=== PATIENT | male | born 1995 | race Caucasian/White ===

== ENCOUNTER 2023-05-31 13:21 | Outpatient (CLI) | payer MEDICAID, SELFPAY | END 2023-05-31 13:22 | disposition home or self-care (01) | PROVIDERS: Visit Provider Family Medicine | DX: R03.0 Elevated blood-pressure reading, without diagnosis of hypertension (principal) | CPT/HCPCS: 80048; 80061 ==

== ENCOUNTER 2024-10-31 09:21 | Emergency (ER) | payer OTHER, SELFPAY ==
--- OUTSIDE RECORDS SUMMARY | 2024-10-31 09:24 | XMS_ITS | Clinical Summary ---
Author Organization [facility] Address [address] [place] [id number] Care Team Providers Care Patient Care Manager Name Role Phone Pcp, No Primary Care Provider Unavailabl e Allergies Active Allergy Reactions Criticality Noted Date Comments Pollen Extracts 03/21/2009 Sertraline Emotional Disturbance 06/12/2012 Irritability and possible suicidal thoughts. Medications No known medications Active Problems Problem Noted Date Diagnosed Date Elevated blood pressure read ing without diagnosis of hypertension 07/23/2012 Encounters for other specifi ed administrative purpose(V68.89) 05/23/2012 Adjustment disorder with depressed mood 11/06/19 09 Overview (05/16/2012): May 2012: Start zoloft and referral to psychology. Allergic rhinitis, cause unspecified Overview (01/22/2007): environmental allergies Resolved Problems Problem Noted Date Diagnosed Date Resolved Date RAD 10/26/2013 Overview (10/26/2013): AGE 3-4 year old, As of October 2013: No asthma symptoms for approximately 6+ years. Will resolve diagnosis. Immunizations Immunization Administration Dates Next Due AMB Influenza, IIV3 (Age >=3 years)(Flu Clinic Only) 07/01/2008 COVID-19 vaccine ([employer] 30mcg/0.3mL) PF, MDV 12/28/2020 DTP 10/10/1997, 4,1993,08/28,1993 HIB PRP-OMP (PedvaxHIB) 07/25/1994,10/23,1993,06/23 Hepatitis A (Peds) 03/21/2009,01/22/2007 Hepatitis B (Peds) 1993,1993, 993 Influenza, IIV3 (Age >=3 years) 05/11/2010,08/09,07/21/2003 MMR 05/04/1998,07/25/1994 Meningococcal Vaccine (Menactra) 03/21/2009 Oral Polio Vaccine 05/04/1998, 4,1993,06/26 Tdap 09/26/2016,04/05/2006 Varicella Vaccine 03/21/2009,04/22/1996 Family History Medical History Relation Name Comments Hyperlipidemia Father Relation Name Status Comments Father Social History Tobacco Use Types Packs/Day Years Used Date Smoking Tobacco: Former Cigarettes Q uit: 05/26/2014 Cigars Smokeless Tobacco: Never Tobacco Cessation:Counseling Given: Yes Comments:cigar or two every other day Alcohol Use Standard Drinks/Week Comments Yes 0 (1 standard drink = 0.6 oz pur e alcohol) occasionally PHQ-2 Answer Date Recorded PHQ-2 Score 4 10/13/2018 Social Connections Answer Date Recorded Frequency of Communication with Friends and Fami ly Not on file 08/12/2021 Financial Resource Strain Answer Date R ecorded Difficulty of Paying Living Expenses Not on file 08/12/2021 Difficulty of Paying Living Expenses Not on file 08/12/2021 Sex and Gender Information Value Date Recorded Sex Assigned at Not on file 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 Gender Identity Not on file Sexual Orientation Not on file Obstetrics History Last Filed Vital Signs Vital Sign Reading Time Taken Comments Blood Pressure 153/100 12/04/2019 10:57 AM CDT Pulse 86 12/04/2019 10:57 AM CDT Temperature 37.3 C (99.1 F) 12/04/2019 10:57 AM CDT Respiratory Rate 20 07/23/2012 1:27 PM RECONCILIATION MANAGER Oxygen Saturation 96% 12/04/2019 10:57 AM CDT Inhaled Oxygen Concentration - - Weight 129.7 kg (286 lb) 12/04/2019 10:57 AM CDT Height 177 cm (5' 9.69) 09/05/2018 10:48 AM RECONCILIATION MANAGER Body Mass Index 41.41 09/05/2018 10:48 AM RECONCILIATION MANAGER Plan of Treatment Health Maintenance Due Date Last Done Comments HIV for age 15-65 2008 Hepatitis C screening for age 18-79 2011 BMI (ht and wt on same day) for age 18+ 09/05/2019 09/05/2018, 02/26/2018, 01/04/2016 Depression screening for age 12+ 09/11/2019 09/11/2018, 09/05/2018, 09/04/2018, Additional history exists COVID-19 vaccine series ( season) 2024 12/28/2020 Influenza Vaccine (#1) 2024 0, 07/01/2008, 08/09/2005, Additional history exists Tetanus booster 09/26/2026 09/26/2016, 04/05/2006 Tdap Completed 09/26/2016, 04/05/2006 Pneumococcal series for age 6-49 Aged Out No longer eligible based on patient's age to complete this topic Insurance [facility] Care Teams Patient Care Manager Relationship Specialty Start Date End Date Pcp, Xin Menchaca PCP - General 12/05/17
--- OUTSIDE RECORDS SUMMARY | 2024-10-31 09:24 | XMS_ITS | Clinical Summary ---
Author Organization [place] Address [facility] [place] [address] Care Team Providers Care Code Inspector Name Role Phone [facility], [facility] [place] [facility] Primary Care Provider Allergies Active Allergy Reactions Criticality Noted Date Comments Pollen Extract 03/21/2009 Sertraline Other (See Comments) 06/12/2012 Irritability and possible suicidal thoughts. 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 Gender Identity Not on file Sexual Orientation Not on file Last Filed Vital Signs Vital Sign Reading Time Taken Comments Blood Pressure 130/84 04/25/2019 8:15 AM CDT Pulse 86 04/25/2019 8:15 AM CDT Temperature 36.6 C (97.8 F) 04/25/2019 8:15 AM CDT Respiratory Rate 16 11/25/2017 2:02 PM CDT Oxygen Saturation 96% 04/25/2019 8:15 AM CDT Inhaled Oxygen Concentration - - Weight 106.6 kg (235 lb) 11/25/2017 11:36 AM CDT Height 175.3 cm (5' 9) 11/25/2017 11:36 AM CDT Body Mass Index 34.7 11/25/2017 11:36 AM CDT Plan of Treatment Not on file Insurance [employer] Care Teams Code Inspector Relationship Specialty Start Date End Date [facility], [facility] [id number] [place] [address] PCP - General 07/24/12
[2024-10-31 09:30] VITALS: BP 140/98; PULSE 82; RESP 18; TEMP 36.2; O2SAT 98; BMI 36.3
--- NOTE | 2024-10-31 10:00 | CRLHL7_ITS ---
For Patients: As a result of the Century Cures Act, medical imaging exams and procedure reports are released immediately into your electronic medical record. You may view this report before your referring provider. If you have questions, please contact your health care provider. INDICATION: Concern for infection. Evaluate for tonsillar abscess. TECHNIQUE: CT of the neck with 121 cc Isovue 370 iodinated intravenous contrast agent. COMPARISON: None. FINDINGS: Nasopharynx: Within normal limits. Oropharynx: Bilateral tonsillar enlargement and striated hyperenhancement. An oval collection within the right dorsal lateral peritonsillar region which measures 8 x 16 millimeters in axial plane and 9 millimeters in craniocaudal plane. Oral cavity: Within normal limits. Supraglottic, glottic and infraglottic larynx: Mild asymmetric soft tissue thickening/edema involving the right supraglottic soft tissues. Hypopharynx: Asymmetric effacement of the right para form sinus from edema. Otherwise within normal limits. Airway including the trachea: Partial effacement of the oropharyngeal airway. Trachea within normal limits. Salivary glands and thyroid gland: Within normal limits. Lymph nodes and other cervical soft tissues: Within normal limits. Vascular Structures: Within normal limits. Osseous structures: Within normal limits. Paranasal sinuses and mastoid air cells: Within normal limits. Teeth: Within normal limits. Imaged orbits and intracranial contents: Within normal limits. Imaged chest wall, mediastinum and upper lungs: Within normal limits. IMPRESSION: 1. Findings consistent with tonsillitis/pharyngitis. An associated small lobulated right dorsolateral peritonsillar abscess is present. Please note that all CT scans at this facility use dose modulation, iterative reconstruction, and/or weight-based dosing when appropriate to reduce radiation dose to as low as reasonably achievable. Dictated by Thanh Ahn MD @ 10/31/2024 10:54:03 AM (Electronically Signed)
--- NOTE | 2024-10-31 10:02 | ED.GENADULT ---
HPI - General Adult General Chief complaint: Sore Throat Stated complaint: sore throat Time Seen by Provider: 10/31/24 09:25 History of Present Illness HPI narrative: This 29-year-old male went to urgent care today and was sent here because of pharyngitis. The patient has bilateral tonsillar hypertrophy with exudate. The right tonsil is larger than the left and is abutting up against the uvula. The patient states that he began to have sore throat 3 days ago. He reports some pain when opening his mouth but is able to do so. He also states that his voice seems muffled. He did not measure his temperature but states that he had chills and diaphoresis suspicious of a fever. He arrives here with normal vital signs. Related Data Previous Rx's ?Medication ?Instructions ?Recorded albuterol sulfate 90 mcg/actuation 2 puff inhalation Q4-6H PRN 11/18/23 aerosol inhaler shortness of breath or wheezing #8.5 grams amoxicillin 875 mg-potassium 1 tab PO BID #10 tabs 10/31/24 clavulanate 125 mg tablet ketorolac 10 mg tablet 10 mg PO TID 5 days #15 tabs 10/31/24 Allergies Allergy/AdvReac Type Severity Reaction Status Date / Time acetaminophen Allergy Severe Headache Verified 10/31/24 10:19 Review of Systems Status of ROS: Reports: 10 or more systems reviewed and unremarkable except as noted in History and below Narrative: Constitutional: No weight gain or loss. Eyes: No discharge. No vision changes. HENT: No congestion, no ear pain. Sore throat is described above. Cardiovascular: No chest pain, no palpitations. Respiratory: No shortness of breath, no wheezes, no cough. Gastrointestinal: No abdominal pain, no vomiting, no diarrhea. Genitourinary: No dysuria, no hematuria. Musculoskeletal: Normal range of motion. Skin: No rashes, no pruritis. Neurological: No dizziness, weakness, sensory change, speech change. Endo/Heme/Allergies: No bruising or bleeding. No polydipsia. Pysch: no suicidality, no anxiety, no insomnia. All other systems reviewed and are negative. 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, nonsmoker, social ETOH, daily THC What is your current living situation?: I presently have a place to live Problems where you live: no known problems In the past 12 months, utilities in danger of being shut off: no In past 12 months, lack of transportation kept you from medical appts, meetings, work, or getting things needed for daily living: no In the past 12 mos, have been you worried that your food would run out before you had money to buy more?: never true In the past 12 mos, the food you bought just didn't last and you didn't have money to buy more?: never true Smoking Status: Current some day smoker How often does anyone, including family, friends and others, physically hurt you: never How often does anyone, including family, friends and others, insult or talk down to you: sometimes How often does anyone, including family, friends and others, threaten you with harm: never How often does anyone, including family, friends and others, scream or curse at you: sometimes Health Related Social Needs: Other personal risk factors, not elsewhere classified (Z91.89) Exam Narrative: Exam Narrative: Constitutional: Well-developed, well-nourished, no acute distress. HEENT: Normocephalic, atraumatic. Bilateral tonsillar hypertrophy, right greater than left. Exudate is present. No trismus. Neck: Normal range of motion. Nontender. Supple. Heart: Regular. No murmurs. Normal rate. Intact distal pulses. Lungs: Clear to auscultation. No chest discomfort. No wheezes, rhonchi, or rales. Abdomen: Normal bowel sounds. Nontender. No rebound tenderness. Genitalia: Deferred. Back: No midline tenderness. Normal range of motion. Extremities: Normal range of motion. No injury. Skin: Intact. No rash. Warm. No erythema or pallor. Neurologic: No altered sensation. No weakness. Alert and oriented. Psychiatric: No suicidality. No anxiety or depression. No insomnia. Nursing notes and vitals signs are reviewed. Const: Vital Signs, click to edit/add: Vital Signs - 24 hr 10/31/24 09:30 Temperature 97.1 F L Pulse Rate [Pulse Oximeter] 82 Respiratory Rate 18 [facility] 140/98 H Pulse Oximetry 98 Oxygen Delivery Me thod Room Air Course Vital Signs Vital signs: Initial Vital Signs Temperature 97.1 F L 10/31/24 09:30 Temperature Source Temporal Artery Scan 10/31/24 09:30 Pulse Rate 82 10/31/24 09:30 Respiratory Rate 18 10/31/24 09:30 Blood Pressure 140/98 H 10/31/24 09:30 Blood Pressure Mean 112 H 10/31/24 09:30 Pulse Oximetry 98 10/31/24 09:30 Oxygen Delivery Method Room Air 10/31/24 09:30 Vital Signs Temperature 97.1 F L 10/31/24 09:30 Pulse Rate 82 10/31/24 09:30 Respiratory Rate 18 10/31/24 09:30 Blood Pressure 140/98 H 10/31/24 09:30 Pulse Oximetry 98 10/31/24 09:30 Oxygen Delivery Method Room Air 10/31/24 09:30 Temperature 97.1 F L 10/31/24 09:30 Pulse Rate 82 10/31/24 09:30 Respiratory Rate 18 10/31/24 09:30 Blood Pressure 140/98 H 10/31/24 09:30 Pulse Oximetry 98 10/31/24 09:30 Oxygen Delivery Method Room Air 10/31/24 09:30 Medications Administered Medications: Discontinued Medications Generic Name Dose Route Start Last Admin Trade Name Freq PRN Reason Stop Dose Admin Ampicillin Sodium/Sulbactam 100 mls @ 200 mls/hr 10/31/24 10:00 10/31/24 10:32 Sodium 3 gm/ Sodium Chloride IVPB 10/31/24 10:01 200 mls/hr ONCE ONE Administration Ketorolac Tromethamine 30 mg 10/31/24 10:00 10/31/24 10:14 Ketorolac 30 Mg/Ml Inj IVP 10/31/24 10:01 30 mg ONCE ONE Administration Medical Decision Making MDM Narrative Medical decision making narrative: This patient comes in with tonsillar hypertrophy and so a CT scan of his neck is obtained with IV contrast. This shows evidence of bilateral tonsillar hypertrophy due to tonsillitis and pharyngitis. There is evidence of possible very small abscess forming. It is not anywhere large enough that would need draining at this time. The patient did receive an IV dose of Unasyn 3 g. I did advise him regarding signs and symptoms that would indicate a need for return re-evaluation. He is okay to go home and received prescription for Augmentin and Toradol. I also provided a return to work note. Imaging Data CT Soft Tissue Neck: Radiologist's impression: Findings consistent with tonsillitis/pharyngitis. An associated small lobulated right dorsolateral peritonsillar abscess is present. Discharge Plan Discharge Clinical Impression: Acute tonsillitis Patient Disposition: Home, Self-Care Condition: Stable Additional Instructions: Take medication as prescribed. Follow up with MD or return if symptoms are persistent or worsening. Prescriptions: New ketorolac 10 mg tablet 10 mg PO TID 5 Days Qty: 15 0RF amoxicillin-pot clavulanate 875-125 mg tablet 1 tab PO BID Qty: 10 0RF No Action albuterol sulfate 90 mcg/actuation HFA aerosol inhaler 2 puff inhalation Q4-6H PRN (Reason: shortness of breath or wheezing) Qty: 8.5 0RF Follow Up/Referrals: Provider,Not a Local [Primary Care Provider] - Stand Alone Forms: Ansible Info Instructions
--- OUTSIDE RECORDS SUMMARY | 2024-10-31 10:13 | XMS_ITS | Clinical Summary ---
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 Gender Identity Not on file Sexual Orientation Not on file Obstetrics History Last Filed Vital Signs Vital Sign Reading Time Taken Comments Blood Pressure 153/100 12/04/2019 10:57 AM CDT Pulse 86 12/04/2019 10:57 AM CDT Temperature 37.3 C (99.1 F) 12/04/2019 10:57 AM CDT Respiratory Rate 20 07/23/2012 1:27 PM VOLCANOLOGY PROFESSOR Oxygen Saturation 96% 12/04/2019 10:57 AM CDT Inhaled Oxygen Concentration - - Weight 129.7 kg (286 lb) 12/04/2019 10:57 AM CDT Height 177 cm (5' 9.69) 09/05/2018 10:48 AM VOLCANOLOGY PROFESSOR Body Mass Index 41.41 09/05/2018 10:48 AM VOLCANOLOGY PROFESSOR Plan of Treatment Health Maintenance Due Date [...] patient's age to complete this topic Insurance [facility] Care Teams Nursing Administrator Relationship Specialty Start Date End Date Pcp, Xin Menchaca PCP - General 12/05/17
--- OUTSIDE RECORDS SUMMARY | 2024-10-31 10:13 | XMS_ITS | Clinical Summary ---
Author Organization [place] Address [facility] [facility] 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
[2024-10-31] MEDS: KETOROLAC 30 MG/ML inj IVP (10:14)
[2024-10-31] MEDS: AMPICILLIN/SULBACTAM 3 GM in 0.9 % SODIUM CHLORIDE Mini-bag 100 ML IVPB (10:32)
== END 2024-10-31 11:17 | disposition home or self-care (01) ==
PROVIDERS: Emergency Provider Emergency Medicine Emergency Medical Services
DX: J03.90 Acute tonsillitis, unspecified (principal)
CPT/HCPCS: 70491; 96365; 96375; 99284; 99285; J0295; J1885; Q9967